=== PATIENT | male | born 1975 | race Caucasian/White ===

== ENCOUNTER 2022-07-31 16:19 | Emergency (ER) | payer BC ==
[2022-07-31 16:39] VITALS: BP 137/87; PULSE 62; RESP 20; TEMP 98
[2022-07-31] MEDS ORDERED: SULFAMETHOX-TMP 800-160MG 1 EACH TAB PO STA (19:00)
--- NOTE | 2022-07-31 19:03 | ED ---
General Adult HPI - General Chief complaint: Eye Problems Stated complaint: eye infection Time Seen by Provider: 07/31/22 18:30 Source: patient, RN notes reviewed, old records reviewed Mode of arrival: ambulatory Limitations: no limitations - History of Present Illness Initial comments: Patient is a 46-year-old male who presents emergency Department with a multi-day history of swelling of his right eyelid. Unknown cause. No pain with movement of his eye. No eye itchiness. No tearing. Has been attempting use warm compresses without much improvement. States it has not gotten worse but has not improved either. Denies any runny nose. Denies any decreased hearing. Denies any numbness or weakness. His no other acute complaints at this time including denying fevers, chills, sick contacts. Denies chest pain or shortness of breath. Presents for evaluation of eye swelling. Denies any decreased vision. Denies any eye pain. - Related Data Previous Rx's Medication Instructions Recorded Sulfamethox-Tmp 800-160Mg [Bactrim 1 tab PO Q12HR 5 Days #10 tab 07/31/22 DS 800-160 mg] Allergies Allergy/AdvReac Type Severity Reaction Status Date / Time No Known Allergies Allergy Verified 07/31/22 16:39 Review of Systems ROS Statement: Those systems with pertinent positive or pertinent negative responses have been documented in the HPI. Review of Systems: CONST: Denies fever EYES: Endorses eyelid swelling ENT: Denies nasal congestion C/V: Denies Chest pain RESP: Denies shortness of breath GI: Denies abdominal pain : Denies dysuria SKIN: Denies rash. MSK: Denies joint pain. NEURO: Denies headache ROS Other: All systems not noted in ROS Statement are negative. Past Medical History Past Medical History: No Reported History History of Any Multi-Drug Resistant Organisms: None Reported Past Surgical History: Appendectomy Past Psychological History: No Psychological Hx Reported Smoking Status: Never smoker Past Alcohol Use History: Occasional Past Drug Use History: None Reported General Exam - General Exam Comments Initial Comments: General: Appears in no acute distress. HEAD: Normal with no signs of head trauma. EYES: PERRLA, EOMI, conjunctiva normal, no discharge. Visual acuity 20/25 bilaterally with corrective lenses. No contact use. Slit-lamp exam unremarkable. No obvious stye or meibomian gland abscess. Soft tissue swelling of the right superior eyelid. Normal range of motion of both eyes. No tearing. No erythema. No induration. No fluctuance. ENT: Hearing grossly intact, normal oropharynx. RESPIRATORY: No respiratory distress. C/V: Regular rate and rhythm. ABD: Abdomen is nondistended. EXT: No obvious deformity. SKIN: Swelling over the right eyelid explained above. NEURO: Alert and oriented 4. No focal sensory strength deficits. Limitations: no limitations Course Vital Signs 07/31/22 16:38 Temperature 98 F Pulse Rate 62 Respiratory 20 Rate Blood Pressure 137/87 O2 Sat by Pulse 99 Oximetry Medical Decision Making - Medical Decision Making Based on the patient's presentation and physical exam, it is possible he is having an unwitnessed stye or chalazion. Cannot rule out potential for soft tissue infection of the upper lid. Did recommend continuing hot compresses, I will start him on empiric antibiotics as well. He was in agreement with this plan. Recommended follow-up with ophthalmology as needed. Patient does not have any pain with movement GI, no concern for orbital cellulitis at this time. Strict return precautions were discussed. He was in agreement this plan. His no visual deficits. Vital signs within normal limits. I will provide the patient with a prescription for Bactrim. I instructed the patient to follow up with their PCP in the next 1-3 days. I provided contact information for follow up with ophthalmology. I explained that the patient should return to the emergency department if they experience any worsening symptoms. Strict return precautions were discussed with the patient. The patient expressed understanding of these instructions. I answered all questions that the patient had. The patient was discharged home in good condition with their p rescriptions and follow up information. Disposition Clinical Impression: Eye swelling, right, Chalazion right upper eyelid Disposition: HOME SELF-CARE Condition: Good Prescriptions: Sulfamethox-Tmp 800-160Mg [Bactrim DS 800-160 mg] 1 tab PO Q12HR 5 Days #10 tab Is patient prescribed a controlled substance at d/c from ED?: No Referrals: None,Stated [Primary Care Provider] - 1-2 days Ihsan Levi MD [STAFF PHYSICIAN] - 1-2 days Time of Disposition: 19:00
== END 2022-07-31 19:11 | disposition home or self-care (01) ==
LOC: EC 16:19
DX: H00.11 Chalazion right upper eyelid (principal); H57.9 Unspecified disorder of eye and adnexa
CPT/HCPCS: 99282